=== PATIENT | male | born 1940 ===

== ENCOUNTER 2021-06-20 15:42 | Observation (INO) | payer MEDICARE ==
[2021-06-20 16:46] LABS: #Monocytes 0.4 10x3/uL (0.0-1.1); %Basophils 0.2 % (0.0-2.0); %Lymphocytes 18.8 % (18.0-47.0); %Monocytes 9.4 % (0.0-10.0); %Neutrophils 71.4 % (40.0-75.0); Hemoglobin 15.8 g/dL (13.5-17.5); Mean Corpuscular HGB CONC 34.9 g/dL (32.0-36.0); Mean Corpuscular Hemoglobin 31.3 pg (27.0-33.0); Mean Corpuscular Volume 89.7 fl (81.2-95.1); Mean Platelet Volume 10.2 fl (7.4-10.4); Platelet Count 143 10x3/uL (150-450); RBC Distribution Width 12.7 % (11.5-14.5); Red Blood Cell (RBC) Count 5.05 10x6/uL (4.32-5.72); White Blood Cell (WBC) Count 4.3 10x3/uL (3.5-10.5)
[2021-06-20 17:03] LABS: ALT (SGPT) 24 U/L (8-55); AST (SGOT) 50 U/L (5-34); Albumin 3.5 g/dL (3.4-4.8); Alkaline Phosphatase 56 U/L (40-110); Anion Gap 14 mmol/L (10-20); BUN (Urea Nitrogen) 30 mg/dL (8.4-25.7); Bilirubin, Total 0.9 mg/dL (0.2-1.2); Calc. Creatinine Clearance 0 mL/min (70-130); Calcium 8.7 mg/dL (7.8-10.44); Carbon Dioxide 25 mmol/L (23-31); Chloride 99 mmol/L (98-107); Globulin 3.1 g/dL (2.4-3.5); Glucose 126 mg/dL (83-110); Potassium 3.9 mmol/L (3.5-5.1); Protein, Total 6.6 g/dL (5.8-8.1); Sodium 134 mmol/L (136-145)
[2021-06-20 17:03] LABS: Bilirubin Neg (Negative); Blood, Urine 10 (Negative); Clarity Clear (Clear); Glucose, Urine (Dipstick) Normal (Negative); Ketone, Urine 5 mg/dL (Negative); Leukocyte Negative (Negative); Nitrite Negative (Negative); Protein, Urine (Dipstick) 30 mg/dl (Neg-Trace); Urobilinogen Normal mg/dL (Less than 2)
[2021-06-20 17:13] LABS: Bacteria/HPF None Seen HPF (None Seen); RBC/HPF None Seen HPF (0-3); Squamous Epithelial 0-3 HPF (0-3); WBC/HPF 0-3 HPF (0-3)
[2021-06-20 17:23] LABS: CKMB 1.3 ng/mL (0-6.6)
[2021-06-20] MEDS ORDERED: Calcium Carbonate 500 MG ChewTAB PO PRN (19:25)
[2021-06-20] MEDS ORDERED: Acetaminophen 325 MG TAB PO PRN (19:25)
[2021-06-20] MEDS ORDERED: Guaifenesin DM 100-10/5 ML UDCUP PO PRN (19:25)
[2021-06-20] MEDS ORDERED: Senokot S 8.6-50 MG TAB PO PRN (19:25)
[2021-06-20] MEDS ORDERED: Potassium Chloride 40 MEQ in Sodium Chloride 0.45% 1,000 ML IV SCH ×2 (21:15→22:00)
[2021-06-20] MEDS: Atorvastatin Calcium 40 MG TAB PO SCH (21:44)
[2021-06-20] MEDS: Tamsulosin HCl 0.4 MG CAP PO SCH (21:45)
[2021-06-20 22:34] LABS: Troponin I 0.049 ng/mL (< 0.028)
[2021-06-20 23:46] VITALS: BMI 25.0
[2021-06-21 05:40] LABS: ALT (SGPT) 19 U/L (8-55); AST (SGOT) 40 U/L (5-34); Albumin 3.1 g/dL (3.4-4.8); Alkaline Phosphatase 54 U/L (40-110); Anion Gap 13 mmol/L (10-20); BUN (Urea Nitrogen) 21 mg/dL (8.4-25.7); Calc. Creatinine Clearance 62 mL/min (70-130); Calcium 8.3 mg/dL (7.8-10.44); Carbon Dioxide 26 mmol/L (23-31); Chloride 102 mmol/L (98-107); Globulin 2.9 g/dL (2.4-3.5); Glucose 91 mg/dL (83-110); Magnesium 1.8 mg/dL (1.6-2.6); Potassium 3.6 mmol/L (3.5-5.1); Sodium 137 mmol/L (136-145)
[2021-06-21 05:41] LABS: #Monocytes 0.2 10x3/uL (0.0-1.1); %Basophils 0.3 % (0.0-2.0); %Lymphocytes 30.9 % (18.0-47.0); %Monocytes 6.3 % (0.0-10.0); %Neutrophils 61.9 % (40.0-75.0); Hemoglobin 15.1 g/dL (13.5-17.5); Mean Corpuscular HGB CONC 33.8 g/dL (32.0-36.0); Mean Corpuscular Hemoglobin 30.6 pg (27.0-33.0); Mean Corpuscular Volume 90.5 fl (81.2-95.1); Mean Platelet Volume 10.2 fl (7.4-10.4); Platelet Count 127 10x3/uL (150-450); RBC Distribution Width 12.8 % (11.5-14.5); Red Blood Cell (RBC) Count 4.94 10x6/uL (4.32-5.72); White Blood Cell (WBC) Count 3.2 10x3/uL (3.5-10.5)
[2021-06-21] MEDS: Aspirin 81 mg Enteric Coated Tablet PO SCH (09:34)
[2021-06-21] MEDS: Ezetimibe 10 MG TAB PO SCH (09:34)
[2021-06-21] MEDS: Enoxaparin Sodium 40 MG/0.4 ML SYRINGE SC SCH (09:34)
[2021-06-21] MEDS: Tamsulosin HCl 0.4 MG CAP PO SCH (20:48)
[2021-06-21] MEDS: Atorvastatin Calcium 40 MG TAB PO SCH (20:48)
[2021-06-22 05:20] LABS: #Monocytes 0.2 10x3/uL (0.0-1.1); #Neutrophils 2.4 10x3/uL (1.5-8.4); %Basophils 0.3 % (0.0-2.0); %Monocytes 6.2 % (0.0-10.0); %Neutrophils 70.2 % (40.0-75.0); Hemoglobin 14.6 g/dL (13.5-17.5); Mean Corpuscular Hemoglobin 31.4 pg (27.0-33.0); Mean Corpuscular Volume 89.7 fl (81.2-95.1); Mean Platelet Volume 10.3 fl (7.4-10.4); Platelet Count 139 10x3/uL (150-450); RBC Distribution Width 12.8 % (11.5-14.5); Red Blood Cell (RBC) Count 4.65 10x6/uL (4.32-5.72); White Blood Cell (WBC) Count 3.4 10x3/uL (3.5-10.5)
[2021-06-22 05:38] LABS: Anion Gap 11 mmol/L (10-20); BUN (Urea Nitrogen) 15 mg/dL (8.4-25.7); Calc. Creatinine Clearance 74 mL/min (70-130); Calcium 8.2 mg/dL (7.8-10.44); Carbon Dioxide 22 mmol/L (23-31); Chloride 106 mmol/L (98-107); Glucose 104 mg/dL (83-110); Magnesium 1.7 mg/dL (1.6-2.6); Phosphorus 2.4 mg/dL (2.3-4.7); Potassium 3.3 mmol/L (3.5-5.1); Sodium 136 mmol/L (136-145)
[2021-06-22] MEDS ORDERED: Magnesium 2 GM/50 ML 2 GM in Premix Bag 1 BAG IVPB SCH (08:00)
[2021-06-22] MEDS ORDERED: Potassium Chloride 20 MEQ TAB PO SCH (08:00)
[2021-06-22] MEDS ORDERED: Amlodipine 5 MG TAB PO SCH (09:00)
[2021-06-22] MEDS ORDERED: Carvedilol 3.125 MG TAB PO SCH (09:00)
[2021-06-22] MEDS ORDERED: Non-Formulary Medication 1 EACH (Losartan/Hydrochlorothiazide [Losartan-Hctz 100-25 Mg Tab PO SCH (09:00)
[2021-06-22] MEDS ORDERED: Aspirin 81 mg Enteric Coated Tablet PO SCH (09:00)
[2021-06-22] MEDS ORDERED: Hydrochlorothiazide 25 MG TAB PO SCH (09:00)
[2021-06-22] MEDS ORDERED: Losartan Potassium 50 MG TAB PO SCH (09:00)
[2021-06-22] MEDS: Ezetimibe 10 MG TAB PO SCH (11:38)
[2021-06-22] MEDS: Aspirin 81 mg Enteric Coated Tablet PO SCH (11:38)
[2021-06-22] MEDS: Enoxaparin Sodium 40 MG/0.4 ML SYRINGE SC SCH (11:39)
[2021-06-22] MEDS ORDERED: Tamsulosin HCl 0.4 MG CAP PO SCH (21:00)
[2021-06-22] MEDS ORDERED: ATORVASTATIN CALCIUM 80 MG PO SCH (21:00)
[2021-06-22 21:06] VITALS: TEMP 98.3
[2021-06-22 21:07] VITALS: BP 118/68
== END 2021-06-22 07:47 | disposition home or self-care (01) ==
LOC: CSHERS 15:42 → CSHTELE 21:16
PROVIDERS: ADMIT Student in an Organized Health Care Education/Training Program; ATTEND Family Medicine
DX: R55 Syncope and collapse (principal); U07.1 COVID-19; I25.10 Atherosclerotic heart disease of native coronary artery without angina pectoris; R77.8 Other specified abnormalities of plasma proteins; I12.9 Hypertensive chronic kidney disease with stage 1 through stage 4 chronic kidney disease, or unspecified chronic kidney disease; N18.2 Chronic kidney disease, stage 2 (mild); E78.5 Hyperlipidemia, unspecified; N40.0 Benign prostatic hyperplasia without lower urinary tract symptoms; Z95.0 Presence of cardiac pacemaker; Z95.1 Presence of aortocoronary bypass graft; E86.1 Hypovolemia
CPT/HCPCS: 70450; 71045; 80048; 80053 ×2; 82553; 83036; 83735 ×2; 83880; 84100; 84484 ×2; 85025 ×3; 93005; 93306; 96372 ×2; 96374; 96375; 97530 ×2; 99285; G0378 ×4; 36415; 81003; 81015; J1650; J3475; J3480